=== PATIENT | female | born 1995 | race Two or more races ===

== ENCOUNTER 2019-10-13 11:06 | Emergency (ER) | payer OTHER ==
[2019-10-13] MEDS ORDERED: METOCLOPRAMIDE HCL 10 MG TABLET PO ONE (11:11)
--- NOTE | 2019-10-13 11:12 | ER Document Report ---
ED Medical Screen (RME) - General Chief Complaint: Vag Bleeding, +preg <12wks Stated Complaint: VAGINAL BLEEDING Time Seen by Provider: 10/13/19 11:10 - HPI Notes: 10/13/19 11:12 Patient is a 24-year-old female G1, P0 presently 6 weeks who presents complaining of bleeding that started about an hour ago. She does have some intermittent pelvic cramping. She does have occasional nausea without vomiting currently. She has no other concerns or complaints. No fever. I have treated and performed a rapid initial assessment of this patient. A comprehensive ED assessment and evaluation of the patient, analysis of test results and completion of medical decision making process will be conducted by additional ED providers. PHYSICAL EXAMINATION: GENERAL: Well-appearing, well-nourished and in no acute distress. A&Ox4. Answers questions appropriately. - Related Data Allergies/Adverse Reactions: No Known Allergies Allergy (Verified 10/13/19 11:11)
[2019-10-13 11:38] LABS: AMORPHOUS SEDIMENT,URINE TRACE /HPF; APPEARANCE,URINE CLOUDY; BILIRUBIN,URINE NEGATIVE (NEGATIVE); COLOR,URINE YELLOW; GLUCOSE, URINE NEGATIVE (NEGATIVE); KETONES,URINE NEGATIVE (NEGATIVE); PROTEIN,URINE NEGATIVE (NEGATIVE); URINE SPECIFIC GRAVITY 1.024; UROBILINOGEN,URINE NEGATIVE mg/dL (<2.0)
--- NOTE | 2019-10-13 12:08 | RADIOLOGY REPORT (SQ) ---
EXAM DESCRIPTION: U/S OB TRANSVAGINAL W/O DOP COMPLETED DATE/TIME: 10/13/2019 11:46 am REASON FOR STUDY: approx 6wks, bleeding COMPARISON: None. TECHNIQUE: Transvaginal static and realtime grayscale images acquired of the pelvis. Additional gisela cted spectral and color Doppler images recorded. All images stored on PACs. bHCG: Pending. CLINICAL DATES: 6 weeks 3 days LIMITATIONS: None. FINDINGS: FETUS: Single Living intrauterine . ULTRASOUND EGA: 6 weeks 2 days ULTRASOUND DOMINIC: 06/05/2020 EFW: Not applicable less than 20 weeks. CRL: 4 mm. FHR: 97 beats per minute. SURVEY: No visualized anomalies. AMNIOTIC FLUID: Adequate amount. PLACENTA: Not yet developed due to early gestation. SUBCHORIONIC BLEED: No. SIZE OF BLEED: Not applicable. UTERUS: No masses. No anomalies. CERVICAL LENGTH: 2.7 cm. Closed. RIGHT ADNEXA: Normal ovary with normal vascular flow. No adnexal free fluid. No adnexal masses. LEFT ADNEXA: Ovary not identified due to poor acoustical window. No adnexal free fluid. No adnexal masses. FREE FLUID: None. OTHER: No other significant finding. IMPRESSION: LIVING INTRAUTERINE . EGA 6 weeks 2 days. Trimester of : First trimester - 0 to 13 weeks. TECHNICAL DOCUMENTATION: JOB ID: [id number] [employer]- All Rights Reserved rev Reading location - IP/workstation name: [email or web address]
--- NOTE | 2019-10-13 12:29 | ER Document Report ---
ED General - General Chief Complaint: Vag Bleeding, +preg <12wks Stated Complaint: VAGINAL BLEEDING Time Seen by Provider: 10/13/19 11:10 Mode of Arrival: Ambulatory Information source: Patient Notes: This 24-year-old female presents emergency department with vaginal bleeding when she wiped this morning. She reports that happened one time. Patient reports she is approximately 6 weeks. G1, P0. Denies trauma. Denies pain with void. Denies abdominal pain reports she did have some cramping earlier but is gone and it was mostly positional. Patient also reports some nausea but reports that depends on what she eats. She reports it does not happen all the time. Denies fever diarrhea. Patient is active [place] [employer] [facility] [place] She has an OB appointment scheduled November 06. Patient also reports she has a lump on her breast. Reports family history of breast cancer. She has been seen by her BAS and is scheduled for an ultrasound next week. TRAVEL OUTSIDE OF THE [place] IN LAST 30 DAYS: No - HPI Onset: This morning Onset/Duration: Sudden Quality of pain: No pain Associated symptoms: None, Nausea Exacerbated by: Denies Relieved by: Denies - Related Data Allergies/Adverse Reactions: No Known Allergies Allergy (Verified 10/13/19 11:11) Past Medical History - General Information source: Patient Last Menstrual Period: 08/29/19 - Social History Smoking Status: Former Smoker Chew tobacco use (# tins/day): No Frequency of alcohol use: None Drug Abuse: None Occupation: Active [place] [employer] [place] Family History: Malignancy - Breast cancer grandmother and mother Patient has suicidal ideation: No Patient has homicidal ideation: No Endocrine Medical History: Reports: Other - PCOS Surgical Hx: Negative Review of Systems - Review of Systems Notes: Review HPI for review of systems., All other systems negative Physical Exam - Vital signs Vitals: Temp Pulse BP Pulse Ox 98.4 F 83 111/66 99 10/13/19 11:10 10/13/19 11:10 10/13/19 11:10 10/13/19 11:10 - Notes Notes: PHYSICAL EXAMINATION: GENERAL: Well-appearing and in no acute distress HEAD: Atraumatic, normocephalic. EYES: Pupils equal round and reactive to light, extraocular movements intact, sclera anicteric, conjunctiva are normal. ENT: nares patent, oropharynx clear without exudates. Moist mucous membranes. NECK: Normal range of motion, supple without lymphadenopathy LUNGS: CTAB and equal. No wheezes rales or rhonchi. HEART: Regular rate and rhythm without murmurs BREAST: Left breast with ttp, firmness Left upper breast ~2 cm ABDOMEN: Soft, no tenderness. No guarding, no rebound EXTREMITIES: Normal range of motion, no pitting edema. NEUROLOGICAL: Cranial nerves grossly intact. PSYCH: Normal mood, normal affect. SKIN: Warm, Dry, normal turgor, no rashes or lesions noted Course - Re-evaluation Re-evalutation: 10/13/19 13:29 24-year-old female presents to the emergency department with complaints of vaginal bleeding when she wiped. Also complains of left breast lump. Transvaginal ultrasound done shows she is 6 weeks 2 days. She was instructed on this. All other labs unremarkable. Patient does have some firmness to her left upper breast. She has been to see her BAS. She has an appointment with all the ultrasound next week at [place]. She also has an appointment with MACHINE REPAIR PERSON on November 06. She is nontoxic looking. Denies nausea or vomiting at this time. Denies further vaginal bleeding. Patient was instructed on vaginal bleeding in early . She was instructed to return to the emergency department for return of vaginal bleeding abdominal pain any concerns. She verbalized understanding to all instructions. She was also instructed to keep her ultrasound appointment next week at [place] for the breast lump. Dictation of this chart was performed using voice recognition software; therefore, there may be some unintended grammatical errors. 10/13/19 13:31 Urine Color YELLOW 10/13/19 11:20 Urine Appearance CLOUDY 10/13/19 11:20 Urine pH 7.0 (5.0-9.0) 10/13/19 11:20 Ur Specific [place] 1.024 10/13/19 11:20 Urine Protein NEGATIVE mg/dL (NEGATIVE) 10/13/19 11:20 Urine Glucose (UA) NEGATIVE mg/dL (NEGATIVE) 10/13/19 11:20 Urine Ketones NEGATIVE mg/dL (NEGATIVE) 10/13/19 11:20 Urine Blood MODERATE (NEGATIVE) H 10/13/19 11:20 Urine RBC (Auto) 5 /HPF 10/13/19 11:20 Blood Type A POSITIVE 10/13/19 11:20 Obstetrics Ultrasound 10/13/19 11:11 IMPRESSION: LIVING INTRAUTERINE . EGA 6 weeks 2 days. Trimester of : First trimester - 0 to 13 weeks. - Vital Signs Vital signs: Temp Pulse Resp BP Pulse Ox 98.7 F 70 105/64 100 10/13/19 13:07 10/13/19 13:07 10/13/19 13:07 10/13/19 13:07 - Laboratory Laboratory results interpreted by me: 10/13/19 10/13/19 11:20 11:20 Beta HCG, Quant 08068.00 H Urine Blood MODERATE H - Diagnostic Test Radiology reviewed: Reports reviewed Discharge - Discharge Clinical Impression: Vaginal bleeding during Condition: Stable Disposition: HOME, SELF-CARE Instructions: Bleeding During Early ([facility]), Ob-Breakfast And Room Attendant Doctors, [facility] [place], ([facility]) Additional Instructions: *You have been evaluated for pelvic cramping, vaginal bleeding *Monitor the bleeding *Follow up with your primary care provider, MACHINE REPAIR PERSON or the health department within the next week *Return to ED for worsening condition, changes, needs, concerns, increasing bleeding, increased cramping.
[2019-10-13 13:07] VITALS: BP 105/64
== END 2019-10-13 13:28 | disposition home or self-care (01) ==
LOC: ER 11:06
DX: O20.9 Hemorrhage in early pregnancy, unspecified (principal); Z3A.01 Less than 8 weeks gestation of pregnancy
CPT/HCPCS: 36415; 76817; 81001; 84702; 86900; 86901; 99284

== ENCOUNTER 2019-10-27 13:17 | Emergency (ER) | payer OTHER ==
--- NOTE | 2019-10-27 13:45 | ER Document Report ---
ED Medical Screen (RME) - General Chief Complaint: Vag Bleeding, +preg <12wks Stated Complaint: VAGINAL BLEEDING Time Seen by Provider: 10/27/19 13:44 Mode of Arrival: Ambulatory Information source: Patient Notes: 24-year-old female presented to ED for vaginal bleeding and cramping. She states she is 8 weeks . She states she states she is feeling less and her symptoms are going away so she is very concerned. She states she has not had her appointment yet so she has not been to the doctor since the start of bleeding. Patient is alert oriented respirations regular nonlabored speaking in full sentences. I have greeted and performed a rapid initial assessment of this patient. A comprehensive ED assessment and evaluation of the patient, analysis of test results and completion of medical decision making process will be conducted by an additional ED providers. TRAVEL OUTSIDE OF THE [place] IN LAST 30 DAYS: No - Related Data Allergies/Adverse Reactions: No Known Allergies Allergy (Verified 10/13/19 11:11) Physical Exam - Vital signs Vitals: Temp Pulse Resp BP Pulse Ox 99.0 F 78 12 120/69 99 10/27/19 13:43 10/27/19 13:43 10/27/19 13:43 10/27/19 13:43 10/27/19 13:43 Course - Vital Signs Vital signs: Temp Pulse Resp BP Pulse Ox 99.0 F 78 12 120/69 99 10/27/19 13:43 10/27/19 13:43 10/27/19 13:43 10/27/19 13:43 10/27/19 13:43
--- NOTE | 2019-10-27 14:30 | RADIOLOGY REPORT (SQ) ---
EXAM DESCRIPTION: U/S OB TRANSVAGINAL W/O DOP COMPLETED DATE/TIME: 10/27/2019 2:15 pm REASON FOR STUDY: Possible miscarriage COMPARISON: None. TECHNIQUE: Transvaginal static and realtime grayscale images acquired of the pelvis. Additional gisela cted spectral and color Doppler images recorded. All images stored on PACs. bHCG: Pending. CLINICAL DATES: 18 weeks 3 days LIMITATIONS: None. FINDINGS: FETUS: Single Living intrauterine . ULTRASOUND EGA: 8 weeks 0 days ULTRASOUND DOMINIC: 06/07/2019 EFW: Not applicable less than 20 weeks. CRL: 1.6 cm FHR: 171 beats per minute. SURVEY: No visualized anomalies. AMNIOTIC FLUID: Adequate amount. PLACENTA: Not yet developed due to early gestation. SUBCHORIONIC BLEED: No. SIZE OF BLEED: Not applicable. UTERUS: No masses. No anomalies. CERVICAL LENGTH: 3.1 cm. Closed. RIGHT ADNEXA: Normal ovary with normal vascular flow. No adnexal free fluid. No adnexal masses. LEFT ADNEXA: Normal ovary with normal vascular flow. No adnexal free fluid. No adnexal masses. FREE FLUID: None. OTHER: No other significant finding. IMPRESSION: LIVING INTRAUTERINE . EGA 8 weeks 0 days. Trimester of : First trimester - 0 to 13 weeks. TECHNICAL DOCUMENTATION: JOB ID: [id number] [employer]- All Rights Reserved rev Reading location - IP/workstation name: [email or web address]
--- NOTE | 2019-10-27 14:33 | ER Document Report ---
ED General - General Chief Complaint: OB Problem (<20wks) Stated Complaint: VAGINAL BLEEDING Time Seen by Provider: 10/27/19 13:44 Mode of Arrival: Ambulatory Information source: Patient Notes: 24-year-old female with history of PCOS, presents emergency department with complaints of some abdominal pain yesterday. She reports she is approximately 8 weeks . She states she is feeling less and she is worried about her symptoms. She reports she has an DRY END TESTER appointment November 06. Denies trauma. Denies vaginal bleeding. Denies fever vomiting diarrhea. Denies trauma. Denies urinary frequency denies pain with void. She is active duty. Patient reports that she is worried because her partner is sterile and she has not been able to get because of the PCOS. TRAVEL OUTSIDE OF THE [place] IN LAST 30 DAYS: No - HPI Onset: Yesterday Onset/Duration: Sudden Quality of pain: No pain Associated symptoms: None Exacerbated by: Denies Relieved by: Denies Similar symptoms previously: Yes Recently seen / treated by doctor: Yes - Related Data Allergies/Adverse Reactions: No Known Allergies Allergy (Verified 10/13/19 11:11) Past Medical History - General Information source: Patient Last Menstrual Period: August 29, 2019 - Social History Smoking Status: Former Smoker Chew tobacco use (# tins/day): No Frequency of alcohol use: None Drug Abuse: None Occupation: Active [place] [employer] [place] Family History: Malignancy - Breast cancer grandmother and mother Patient has suicidal ideation: No Patient has homicidal ideation: No - Medical History Medical History: Negative Surgical Hx: Negative Review of Systems - Review of Systems Notes: Review HPI for review of systems., All other systems negative Physical Exam - Vital signs Vitals: Temp Pulse Resp BP Pulse Ox 99.0 F 78 12 120/69 99 10/27/19 13:43 10/27/19 13:43 10/27/19 13:43 10/27/19 13:43 10/27/19 13:43 - Notes Notes: PHYSICAL EXAMINATION: GENERAL: Well-appearing and in no acute distress HEAD: Atraumatic, normocephalic. EYES: Pupils equal round extraocular movements intact, sclera anicteric, conjunctiva are normal. ENT: nares patent, oropharynx clear without exudates. Moist mucous membranes. NECK: Normal range of motion, supple without lymphadenopathy LUNGS: CTAB and equal. No wheezes rales or rhonchi. HEART: Regular rate and rhythm without murmurs ABDOMEN: Soft, no tenderness. No guarding, no rebound BACK: Denies pain EXTREMITIES: Normal range of motion, no pitting edema. NEUROLOGICAL: Cranial nerves grossly intact. SKIN: Warm, Dry, normal turgor, no rashes or lesions noted Course - Re-evaluation Re-evalutation: 10/27/19 15:52 24-year-old female presents emergency department with approximately 8 weeks she 1 P0. Patient reports she woke up with very light abdominal cramping no vaginal bleeding and just did not feel . So she came the emergency department. She does have a follow-up OB appointment November 06. She denies other symptoms such as fever vomiting diarrhea denies pain with void. She reports she has a hard time believing she is because she does not feel like it. Patient was instructed on ultrasound reports labs. She was instructed to follow-up with her CENTRIFUGAL EXTRACTOR OPERATOR as scheduled. She verbalized understanding all instructions. Obstetrics Ultrasound 10/27/19 13:46 IMPRESSION: LIVING INTRAUTERINE . EGA 8 weeks 0 days. Trimester of : First trimester - 0 to 13 weeks. 10/27/19 15:05 10/27/19 15:05 MCV 90 fl (80-97) 10/27/19 15:05 MCH 31.7 pg (27.0-33.4) 10/27/19 15:05 MCHC 35.1 g/dL (32.0-36.0) 10/27/19 15:05 RDW 14.2 % (11.5-14.0) H 10/27/19 15:05 Seg Neutrophils % 66.6 % (42-78) 10/27/19 15:05 Chloride 101 mmol/L (98-107) 10/27/19 15:05 Carbon Dioxide 26 mmol/L (22-30) 10/27/19 15:05 Anion Gap 9 (5-19) 10/27/19 15:05 Est GFR ( Amer) > 60 (>60) 10/27/19 15:05 Glucose 88 mg/dL (75-110) 10/27/19 15:05 Calcium 9.6 mg/dL (8.4-10.2) 10/27/19 15:05 Total Bilirubin 0.3 mg/dL (0.2-1.3) 10/27/19 15:05 AST 23 U/L (14-36) 10/27/19 15:05 Alkaline Phosphatase 56 U/L (38-126) 10/27/19 15:05 Total Protein 7.3 g/dL (6.3-8.2) 10/27/19 15:05 Albumin 4.0 g/dL (3.5-5.0) 10/27/19 15:05 Blood Type A POSITIVE 10/27/19 15:05 10/27/19 19:37 Dictation of this chart was performed using voice recognition software; therefo re, there may be some unintended grammatical errors. - Vital Signs Vital signs: Temp Pulse Resp BP Pulse Ox 98.3 F 69 16 110/72 98 10/27/19 17:24 10/27/19 17:24 10/27/19 17:24 10/27/19 17:24 10/27/19 17:24 - Laboratory Result Diagrams: 10/27/19 15:05 10/27/19 15:05 Laboratory results interpreted by me: 10/27/19 10/27/19 15:05 15:05 RDW 14.2 H Sodium 136.2 L Beta HCG, Quant 634929.00 H - Diagnostic Test Radiology reviewed: Image reviewed, Reports reviewed Discharge - Discharge Clinical Impression: Condition: Stable Disposition: HOME, SELF-CARE Instructions: Bleeding During Early ([facility]) Additional Instructions: *You have been evaluated for vaginal bleeding during early *Ultrasound shows a living intrauterine with heart rate of 171. *Follow up with your OB-CENTRIFUGAL EXTRACTOR OPERATOR as scheduled November 06, 2019 *Return to ED for worsening condition, changes, needs, concerns
[2019-10-27 15:16] LABS: ABSOLUTE EOSINOPHILS # (AUTO) 0.1 10^3/uL (0.0-0.6); ABSOLUTE LYMPHOCYTES (AUTO) 2.4 10^3/uL (0.5-4.7); ABSOLUTE MONOCYTES (AUTO) 0.8 10^3/uL (0.1-1.4); ABSOLUTE NEUT (AUTO) 6.8 10^3/uL (1.7-8.2); BASOPHILS % (AUTO) 0.4 % (0-2); HEMATOCRIT 40.5 % (36.0-47.0); HEMOGLOBIN 14.2 g/dL (12.0-15.5); LYMPHOCYTES % (AUTO) 23.7 % (13-45); MEAN CORPUSCULAR HEMOGLOBIN 31.7 pg (27.0-33.4); MEAN CORPUSCULAR HGB CONC 35.1 g/dL (32.0-36.0); MEAN CORPUSCULAR VOLUME 90 fl (80-97); MONOCYTES % (AUTO) 8.3 % (3-13); PLATELET COUNT 312 10^3/uL (150-450); RED BLOOD COUNT 4.48 10^6/uL (3.72-5.28); RED CELL DISTRIBUTION WIDTH 14.2 % (11.5-14.0); SEGMENTED NEUTROPHILS % (AUTO) 66.6 % (42-78); TOTAL CELLS COUNTED % (AUTO) 100 %; WHITE BLOOD COUNT 10.2 10^3/uL (4.0-10.5)
[2019-10-27 15:41] LABS: ALKALINE PHOSPHATASE 56 U/L (38-126); ANION GAP 9 (5-19); ASPARTATE AMINO TRANSFERASE 23 U/L (14-36); BILIRUBIN,DIRECT 0.1 mg/dL (0.0-0.4); BILIRUBIN,TOTAL 0.3 mg/dL (0.2-1.3); BLOOD UREA NITROGEN 13 mg/dL (7-20); CALCIUM 9.6 mg/dL (8.4-10.2); CARBON DIOXIDE 26 mmol/L (22-30); CHLORIDE 101 mmol/L (98-107); GLUCOSE 88 mg/dL (75-110); TOTAL PROTEIN 7.3 g/dL (6.3-8.2)
[2019-10-27 17:24] VITALS: BP 110/72
== END 2019-10-27 17:28 | disposition home or self-care (01) ==
LOC: ER 13:17
DX: O26.891 Other specified pregnancy related conditions, first trimester (principal); R10.9 Unspecified abdominal pain; Z3A.08 8 weeks gestation of pregnancy
CPT/HCPCS: 36415; 76817; 80053; 84702; 85025; 86900; 86901; 99284